=== PATIENT | male | born 1995 | race Hispanic/Latino ===

== ENCOUNTER 2021-12-08 12:38 | Emergency (ER) | payer SELFPAY ==
[2021-12-08] MEDS ORDERED: Bupivacaine 0.25% 10 ML VIAL ONE (13:55)
[2021-12-08] MEDS ORDERED: Boostrix 0.5 ML (Tdap) VIAL (>/=7 yrs of age) ONE ×2 (14:37→14:41)
[2021-12-08] MEDS ORDERED: Bacitracin 1 PK ONE (15:08)
== END 2021-12-08 15:44 | disposition home or self-care (01) ==
LOC: ERS 12:38
DX: S61.213A Laceration without foreign body of left middle finger without damage to nail, initial encounter (principal); Z23 Encounter for immunization; W26.8XXA Contact with other sharp object(s), not elsewhere classified, initial encounter
CPT/HCPCS: 12002; 90471; 90715; S0020